=== PATIENT | female | born 1990 | race African-American/Black ===

== ENCOUNTER 2017-03-10 01:00 | Emergency (ER) | payer SELFPAY ==
[~2017-03-10] VITALS: Ht 160 cm; Wt 92.5 kg
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
[2017-03-10 02:03] LABS: BILIRUBIN,URINE NEGATIVE (NEG); GLUCOSE,URINE NEGATIVE (NEG); NITRITE,URINE NEGATIVE (NEG); PROTEIN,URINE NEGATIVE (NEG-TRACE); UROBILINOGEN,URINE 0.2 mg/dL (0.2 mg/dL)
[2017-03-10 02:14] LABS: BACTERIA,URINE MODERATE /HPF (0-FEW); RBC,URINE 0 /HPF (0-2); SQUAMOUS EPITHELIAL CELL,UR MOD /LPF
[2017-03-10 02:23] LABS: NEG OBC UR NEG; POS OBC UR POS
[2017-03-10] MEDS ORDERED: NAPR500T PO (03:58)
[2017-03-10] MEDS ORDERED: TIZA4CAP3 PO (03:58)
[2017-03-10 04:10] VITALS: BP 119/62
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
== END 2017-03-10 04:10 | disposition home or self-care (01) ==
LOC: ER 01:00
DX: S16.1XXA Strain of muscle, fascia and tendon at neck level, initial encounter (principal); S29.012A Strain of muscle and tendon of back wall of thorax, initial encounter; J45.909 Unspecified asthma, uncomplicated; V47.6XXA Car passenger injured in collision with fixed or stationary object in traffic accident, initial encounter; Y93.89 Activity, other specified; Y92.488 Other paved roadways as the place of occurrence of the external cause; Y99.8 Other external cause status
CPT/HCPCS: 72040; 72072; 81001; 81025; 87086; 99285

== ENCOUNTER 2018-03-18 20:40 | Emergency (ER) | payer OTHER ==
[~2018-03-18] VITALS: Ht 160 cm; Wt 92.5 kg
[~2018-03-18 20:40] MED LIST: NAPR-683 PO; TIZA4CAP3 PO
[2018-03-18 21:10] VITALS: BP 157/89
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
== END 2018-03-18 21:32 | disposition home or self-care (01) ==
LOC: ER 20:40
DX: S76.312A Strain of muscle, fascia and tendon of the posterior muscle group at thigh level, left thigh, initial encounter (principal); J45.909 Unspecified asthma, uncomplicated; Y04.0XXA Assault by unarmed brawl or fight, initial encounter; Y93.89 Activity, other specified; Y92.89 Other specified places as the place of occurrence of the external cause; Y99.8 Other external cause status
CPT/HCPCS: 99282; 99283

== ENCOUNTER 2018-05-08 08:10 | Emergency (ER) | payer OTHER ==
[~2018-05-08] VITALS: Ht 157.5 cm; Wt 82.6 kg
[2018-05-08] MEDS ORDERED: METOCLOPRAMIDE HCL 10 MG/2 ML VIAL. IV ONE (08:30)
--- NOTE | 2018-05-08 08:33 | PHYS DOC ---
Past Medical History Past Medical History: Asthma Past Surgical History: Cholecystectomy Additional Past Surgical Histo: IUD Alcohol Use: None Drug Use: None Adult General HPI HPI Patient is a 28 year old female who presents with abdominal pain, nausea, vomiting, and diarrhea for the past 3 days. This started on Thanksgiving. Patient has been seen at [facility] as well as [facility]. In fact just left [facility] at 5:00 this morning, was unable to get her prescriptions filled, started feeling badly again as the medication that she had received at [facility] wore off, and so took the ambulance to this emergency Department. Patient denies any blood in the stool or emesis. Patient cannot verbalize what kind of workup such as laboratory testing or imaging was performed. Medication given in the emergency department seem to help with the symptoms. Patient reports the pain is severe, crampy and achy, and across her entire abdomen.[] Review of Systems Review of Systems Constitutional: Denies fever or chills [] Eyes: Denies change in visual acuity, redness, or eye pain [] HENT: Denies nasal congestion or sore throat [] Respiratory: Denies cough or shortness of breath [] Cardiovascular: No chest pain or palpitations[] GI: See history of present illness[] : Denies dysuria or hematuria [] Musculoskeletal: Denies back pain or joint pain [] Integument: Denies rash or skin lesions [] Neurologic: Denies headache, focal weakness or sensory changes [] Endocrine: Denies polyuria or polydipsia [] All other systems were reviewed and found to be within normal limits, except as documented in this note. Current Medications Current Medications Current Medications Medications (Trade) Dose Ordered Sig/Naz Start Time Stop Time Status Last Admin Dose Admin Hyoscyamine (Anaspaz) 0.125 mg ONCE ONCE 05/08/18 09:00 05/08/18 09:01 DC 05/08/18 08:57 0.125 MG Ketorolac Tromethamine (Toradol 15mg Vial) 15 mg 1X ONCE 05/08/18 09:00 05/08/18 09:01 DC 05/08/18 08:58 15 MG Metoclopramide HCl (Reglan Vial) 10 mg 1X ONCE 05/08/18 08:30 05/08/18 08:31 DC 05/08/18 08:48 10 MG Ringer's Solution 500 ml @ 250 mls/hr 1X ONCE 05/08/18 09:30 05/08/18 11:29 DC 05/08/18 09:30 250 MLS/HR Allergies Allergies Allergies Coded Allergies Type Severity Reaction Last Updated Verified No Known Drug Allergies 06/28/13 No Physical Exam Physical Exam Constitutional: Well developed, well nourished, no acute distress, non-toxic appearance. [] HENT: Normocephalic, atraumatic, bilateral external ears normal, oropharynx moist, no oral exudates, nose normal. [] Eyes: PERRLA, EOMI, conjunctiva normal, no discharge. [] Neck: Normal range of motion, no tenderness, supple, no stridor. [] Cardiovascular:Heart rate regular rhythm, no murmur [] Lungs & Thorax: Bilateral breath sounds clear to auscultation [] Abdomen: Bowel sounds normal, soft, diffuse tenderness, able to sit up without any difficulty, no masses, no pulsatile masses. [] Skin: Warm, dry, no erythema, no rash. [] Back: No tenderness, no CVA tenderness. [] Extremities: No tenderness, no cyanosis, no clubbing, ROM intact, no edema. [] Neurologic: Alert and oriented X 3, normal motor function, normal sensory function, no focal deficits noted. [] Psychologic: Affect normal, judgement normal, mood normal. [] Current Patient Data Vital Signs Vital Signs Date Time Temp Pulse Resp B/P (MAP) Pulse Ox O2 Delivery O2 Flow Rate FiO2 05/08/18 10:30 60 20 Room Air 05/08/18 08:30 100 05/08/18 08:10 98.6 156/82 (106) 98.6 Lab Values Laboratory Tests Test 05/08/18 08:48 05/08/18 09:40 05/08/18 11:20 05/08/18 11:25 White Blood Count 15.4 x10^3/uL (4.0-11.0) H Red Blood Count 4.87 x10^6/uL (3.50-5.40) Hemoglobin 15.2 g/dL (12.0-15.5) Hematocrit 44.3 % (36.0-47.0) Mean Corpuscular Volume 91 fL (79-100) Mean Corpuscular Hemoglobin 31 pg (25-35) Mean Corpuscular Hemoglobin Concent 34 g/dL (31-37) Red Cell Distribution Width 13.5 % (11.5-14.5) Platelet Count 326 x10^3/uL (140-400) Neutrophils (%) (Auto) 78 % (31-73) H Lymphocytes (%) (Auto) 16 % (24-48) L Monocytes (%) (Auto) 6 % (0-9) Eosinophils (%) (Auto) 0 % (0-3) Basophils (%) (Auto) 1 % (0-3) Neutrophils # (Auto) 12.0 x10^3uL (1.8-7.7) H Lymphocytes # (Auto) 2.4 x10^3/uL (1.0-4.8) Monocytes # (Auto) 0.9 x10^3/uL (0.0-1.1) Eosinophils # (Auto) 0.0 x10^3/uL (0.0-0.7) Basophils # (Auto) 0.1 x10^3/uL (0.0-0.2) Sodium Level 140 mmol/L (136-145) Potassium Level 3.0 mmol/L (3.5-5.1) L Chloride Level 100 mmol/L (98-107) Carbon Dioxide Level 26 mmol/L (21-32) Anion Gap 14 (6-14) Blood Urea Nitrogen 15 mg/dL (7-20) Creatinine 0.9 mg/dL (0.6-1.0) Estimated GFR (Cockcroft-Gault) 89.6 BUN/Creatinine Ratio 17 (6-20) Glucose Level 85 mg/dL (70-99) Lactic Acid Level 2.6 mmol/L (0.4-2.0) H Calcium Level 9.4 mg/dL (8.5-10.1) Total Bilirubin 0.8 mg/dL (0.2-1.0) Aspartate Amino Transferase (AST) 18 U/L (15-37) Alanine Aminotransferase (ALT) 23 U/L (14-59) Alkaline Phosphatase 77 U/L (46-116) Total Protein 8.5 g/dL (6.4-8.2) H Albumin 3.5 g/dL (3.4-5.0) Albumin/Globulin Ratio 0.7 (1.0-1.7) L Lipase 92 U/L (73-393) Urine Collection Type Void Urine Color Yellow Urine Clarity Hazy Urine pH 7.0 Urine Specific [place] 1.025 Urine Protein 30 mg/dL (NEG-TRACE) Urine Glucose (UA) Negative mg/dL (NEG) Urine Ketones (Stick) >=80 mg/dL (NEG) Urine Blood Negative (NEG) Urine Nitrite Negative (NEG) Urine Bilirubin Small (NEG) Urine Urobilinogen Dipstick 1.0 mg/dL (0.2 mg/dL) Urine Leukocyte Esterase Negative (NEG) Urine RBC Occ /HPF (0-2) Urine WBC 5-10 /HPF (0-4) Urine Squamous Epithelial Cells Many /LPF Urine Bacteria Moderate /HPF (0-FEW) Urine Mucus Marked /LPF Urine Opiates Screen Neg (NEG) Urine Methadone Screen Neg (NEG) Urine Barbiturates Neg (NEG) Urine Phencyclidine Screen Neg (NEG) Urine Amphetamine/Methamphetamine Neg (NEG) Urine Benzodiazepines Screen Pos (NEG) Urine Cocaine Screen Neg (NEG) Urine Cannabinoids Screen Pos (NEG) Urine Ethyl Alcohol Neg (NEG) POC Urine HCG, Qualitative Hcg negative (Negative) Laboratory Tests 05/08/18 08:48 Laboratory Tests 05/08/18 09:40 EKG EKG [] Radiology/Procedures Radiology/Procedures [] Course & Med Decision Making Course & Med Decision Making Pertinent Labs and Imaging studies reviewed. (See chart for details) ED course: Patient arrived by EMS, was smiling while sitting on the MS Contin was able to transfer herself from the EMS cot and walk to the hospital bed. During evaluation, patient felt that she had to start pacing to help with the pain. Records were requested as well as received from [facility] as well as [facility] on the [place]. She was seen at each of these facilities in the past [address] scan obtained at [facility] on 05/07/2018@50 8 AM: There was a tiny small bowel deception involving the second portion of the duodenum that should resolve spontaneously. She did receive relief of her discomfort with the medication given in the emergency department. After the laboratory findings from us returned these were discussed with the patient and all questions were answered.[] Dragon Disclaimer Dragon Disclaimer This electronic medical record was generated, in whole or in part, using a voice recognition dictation system. Departure Departure Impression: Primary Impression: Abdominal pain Additional Impression: Urinary tract infection Disposition: 01 HOME, SELF-CARE Condition: GOOD Referrals: GERMAINE CARRERA (PCP) Follow-up in 2 days Patient Instructions: Abdominal Pain, Urinary Tract Infection Additional Instructions: Drink plenty of fluids. Take your medication as prescribed. Follow-up with your regular doctor in 2 days. Return to the ER if worsening pain, and able to tolerate liquids, or any other concerns. Scripts Meloxicam (MELOXICAM) 7.5 Mg Tablet 7.5 MG PO DAILY, #20 TAB Prov: FAWN FISHER DO 05/08/18 Dicyclomine Hcl (DICYCLOMINE HCL) 20 Mg Tablet 1 TAB PO TID, #30 TAB 1 Refill Prov: FAWN FISHER DO 05/08/18 Cephalexin (CEPHALEXIN) 500 Mg Tablet 1 TAB PO TID, #30 TAB Prov: FAWN FISHER DO 05/08/18 Problem Qualifiers Primary Impression: Abdominal pain Abdominal location: generalized Qualified Codes: R10.84 - Generalized abdominal pain Additional Impression: Urinary tract infection Urinary tract infection type: site unspecified Hematuria presence: without hematuria Qualified Codes: N39.0 - Urinary tract infection, site not specified FAWN FISHER DO May 08, 2018 08:33
[2018-05-08] MEDS ORDERED: KETOROLAC 15 MG/ML VIAL. IV ONE (09:00)
[2018-05-08] MEDS ORDERED: HYOSCYAMINE 0.125 MG TAB.RAPDIS PO ONE (09:00)
[2018-05-08 09:07] LABS: BASO # 0.1 x10^3/uL (0.0-0.2); BASO % 1 % (0-3); EOS % 0 % (0-3); HEMATOCRIT 44.3 % (36.0-47.0); HEMOGLOBIN 15.2 g/dL (12.0-15.5); LYMPH # 2.4 x10^3/uL (1.0-4.8); LYMPH % 16 % (24-48); MEAN CORPUSCULAR HEMOGLOBIN 31 pg (25-35); MEAN CORPUSCULAR HGB CONC 34 g/dL (31-37); MEAN CORPUSCULAR VOLUME 91 fL (79-100); MONO # 0.9 x10^3/uL (0.0-1.1); MONO % 6 % (0-9); NEUT % 78 % (31-73); PLATELET COUNT 326 x10^3/uL (140-400); RED BLOOD COUNT 4.87 x10^6/uL (3.50-5.40); RED CELL DISTRIBUTION WIDTH 13.5 % (11.5-14.5); WHITE BLOOD COUNT 15.4 x10^3/uL (4.0-11.0)
[2018-05-08] MEDS ORDERED: IV RINGERS,LACTATED 500ML 1,000 ML IV ONE (09:30)
[2018-05-08] MEDS ORDERED: IV RINGERS,LACTATED 500ML 1,000 ML IV SCH (09:30)
[2018-05-08] MEDS ORDERED: IV RINGERS,LACTATED 500ML 500 ML IV ONE (09:30)
[2018-05-08] MEDS ORDERED: IV RINGERS,LACTATED 1000ML 1,000 ML IV SCH (09:30)
[2018-05-08 10:21] LABS: ALBUMIN 3.5 g/dL (3.4-5.0); ALBUMIN/GLOBULIN RATIO 0.7 (1.0-1.7); CALCIUM 9.4 mg/dL (8.5-10.1); CREATININE 0.9 mg/dL (0.6-1.0); GFR 89.6; TOTAL BILIRUBIN 0.8 mg/dL (0.2-1.0); TOTAL PROTEIN 8.5 g/dL (6.4-8.2)
[2018-05-08 11:22] VITALS: BP 151/74
[2018-05-08 11:39] LABS: BILIRUBIN,URINE SMALL (NEG); COLOR,URINE YELLOW; NITRITE,URINE NEGATIVE (NEG); PROTEIN,URINE 30 mg/dL (NEG-TRACE)
[2018-05-08 11:45] LABS: AMPHETAMINE/METHAMPHETAMINE NEG (NEG); BARBITURATES NEG (NEG); BENZODIAZEPINES POS (NEG); CANNABINOIDS POS (NEG); COCAINE NEG (NEG); METHADONE NEG (NEG); OPIATES NEG (NEG); PHENCYCLIDINE NEG (NEG)
[2018-05-08 12:11] LABS: CLARITY,URINE HAZY
[2018-05-08 12:14] LABS: BACTERIA,URINE MODERATE /HPF (0-FEW); RBC,URINE OCC /HPF (0-2); SQUAMOUS EPITHELIAL CELL,UR MANY /LPF
[2018-05-08] MEDS ORDERED: MELO7.5T29 PO (12:38)
[2018-05-08] MEDS ORDERED: DICY20TA3 PO (12:38)
[2018-05-08] MEDS ORDERED: CEPH500T PO (12:38)
== END 2018-05-08 12:52 | disposition home or self-care (01) ==
LOC: ER 08:10
DX: N39.0 Urinary tract infection, site not specified (principal); J45.909 Unspecified asthma, uncomplicated
CPT/HCPCS: 36415; 80053; 80307; 81001; 81025; 83605; 83690; 85025; 87086; 96361; 96374; 96375; 99283; J1885; J2765; J7120

== ENCOUNTER 2020-12-09 14:12 | Emergency (ER) | payer OTHER ==
[~2020-12-09] VITALS: Ht 160 cm; Wt 91.0 kg
[~2020-12-09 14:12] MED LIST changes: +CEPH500T PO; +DICY20TA3 PO; +MELO7.5T29 PO
[2020-12-09 14:26] VITALS: BP 132/63
[2020-12-09] MEDS ORDERED: LIDOCAINE 1% Multi-Dose 20 ML VIAL. INJ ONE (15:15)
[2020-12-09] MEDS ORDERED: CEPH500C PO (15:16)
--- NOTE | 2020-12-09 15:16 | PHYS DOC ---
Past Medical History Past Medical History: Asthma Past Surgical History: Cholecystectomy Additional Past Surgical Histo: IUD Smoking Status: Never Smoker Alcohol Use: None Drug Use: None General Adult EDM: Chief Complaint: ABSCESS HPI: HPI: Patient is a 30 year old female who presents with for last few days she has had a abscess to the left pubic area. She denies fever, nausea, vomiting, diarrhea, abdominal pain. She is a month . She has a history of asthma, cholecystectomy and an IUD. Patient states her pain is a 7 out of 10 especially when the area is touched. Patient denies abdominal pain, nausea, vomiting, diarrhea, fever, vaginal bleeding, unusual vaginal discharge. She states she went through an OB 3 days ago and heard the baby's heartbeat. Review of Systems: Review of Systems: Constitutional: Denies fever or chills. [] Eyes: Denies change in visual acuity. [] HENT: Denies nasal congestion or sore throat. [] Respiratory: Denies cough or shortness of breath. [] Cardiovascular: Denies chest pain or edema. [] GI: Denies abdominal pain, nausea, vomiting, bloody stools or diarrhea. [] : Denies dysuria. [] Musculoskeletal: Denies back pain or joint pain. [] Integument: Denies rash. + Left pubic abscess [] Neurologic: Denies headache, focal weakness or sensory changes. [] Endocrine: Denies polyuria or polydipsia. [] Lymphatic: Denies swollen glands. [] Psychiatric: Denies depression or anxiety. [] Heart Score: C/O Chest Pain: No Risk Factors: Risk Factors: DM, Current or recent (<one month) smoker, HTN, HLP, family history of CAD, obesity. Risk Scores: Score 0 - 3: 2.5% MACE over next 6 weeks - Discharge Home Score 4 - 6: 20.3% MACE over next 6 weeks - Admit for Clinical Observation Score 7 - 10: 72.7% MACE over next 6 weeks - Early Invasive Strategies Current Medications: Current Medications Medications (Trade) Dose Ordered Sig/Naz Start Time Stop Time Status Last Admin Dose Admin Lidocaine HCl (Lidocaine 1% 20ml Vial) 20 ml 1X ONCE 12/09/20 15:15 12/09/20 15:16 Allergies: Allergies: Allergies Coded Allergies Type Severity Reaction Last Updated Verified No Known Drug Allergies 06/28/13 No Physical Exam: PE: Constitutional: Well developed, well nourished, no acute distress, non-toxic appearance. [] HENT: Normocephalic, atraumatic, bilateral external ears normal, oropharynx moist, no oral exudates, nose normal. [] Eyes: PERRLA, EOMI, conjunctiva normal, no discharge. [] Neck: Normal range of motion, no tenderness, supple, no stridor. [] Cardiovascular:Heart rate regular rhythm, no murmur [] Lungs & Thorax: Bilateral breath sounds clear to auscultation [] Abdomen: Bowel sounds normal, soft, no tenderness, no masses, no pulsatile masses. [] Skin: Warm, dry, no erythema, no rash. Abscess to left pubic area [] Back: No tenderness, no CVA tenderness. [] Extremities: No tenderness, no cyanosis, no clubbing, ROM intact, no edema. [] Neurologic: Alert and oriented X 3, normal motor function, normal sensory function, no focal deficits noted. [] Psychologic: Affect normal, judgement normal, mood normal. [] Current Patient Data: Vital Signs: Vital Signs Date Time Temp Pulse Resp B/P (MAP) Pulse Ox O2 Delivery O2 Flow Rate FiO2 12/09/20 14:26 98.8 88 16 132/63 (86) 100 Room Air 98.8 EKG: EKG: [] Radiology/Procedures: Radiology/Procedures: [] Course & Med Decision Making: Course & Med Decision Making Pertinent Labs and Imaging studies reviewed. (See chart for details) See HPI. Alert and oriented x4. Ambulatory with steady gait. Speaks in full clear sentences. No cellulitis. Abscess area is soft. There is currently no drainage. Afebrile. Patient appears to be very paranoid and is questioning before I use the lidocaine to numb up her skin if this is going to hurt her baby. She states that the baby's father is going into the [employer] and the grandmother is trying to sacrifice the baby. Patient states that the grandmother has a whole bunch of therefore chipping things in the house and family members have been dying off and now it will make sense that the grandmother has been sacrificing her family members. Patient states that her parents are going to send her over sea's and she does not know why. Patient is stating that she wants a US of her baby even though she does not have any complaints. Patient states she is not leaving until she gets a US. I spoke with Dr Senthil james patient and he states since she has no related complaints she can follow up OB. I&D Location: Left pubic area. Area is 1 cm vertically and 2 inches horizontally. Anesthesia: 1% lidocaine Scalpel size: #11 Skin: Normal Drainage: small purulent fluid Packing: None Patient tolerated the procedure well with no complications. The area was prepped and draped in usual sterile fashion. Area was cleaned with chloehexidine prior to procedure. Return for signs and symptoms of infection education given. Patient to return in 48 hours for wound recheck. [] Dragon Disclaimer: Dragon Disclaimer: This electronic medical record was generated, in whole or in part, using a voice recognition dictation system. Departure Departure Impression: Primary Impression: Abscess Disposition: HOME / SELF CARE / HOMELESS Condition: STABLE Referrals: GERMAINE CARRERA (PCP) Patient Instructions: Abscess, Abscess, Care After Additional Instructions: Follow-up with your OB doctor soon as possible. Watch for signs of worsening infection. Take antibiotic as prescribed and with food. You can always follow- up with us in the next 48 hours for a wound recheck. Scripts Cephalexin (CEPHALEXIN) 500 Mg Capsule 1 CAP PO QID, #40 CAP Prov: KEITH TRINH APRN 12/09/20 KEITH TRINH APRN Dec 09, 2020 15:16
== END 2020-12-09 16:08 | disposition home or self-care (01) ==
LOC: ER 14:12
DX: O99.711 Diseases of the skin and subcutaneous tissue complicating pregnancy, first trimester (principal); L02.214 Cutaneous abscess of groin; O99.511 Diseases of the respiratory system complicating pregnancy, first trimester; J45.909 Unspecified asthma, uncomplicated; Z3A.01 Less than 8 weeks gestation of pregnancy
CPT/HCPCS: 10060; 99283; J3490

== ENCOUNTER → 2020-12-16 | Emergency (ER) | payer OTHER ==
[2020-12-09 14:26] VITALS: BP 132/63
[~2020-12-16] MED LIST changes: +CEPH500C PO
== END | disposition left against medical advice (07) ==
LOC: ER 17:32
DX: M54.9 Dorsalgia, unspecified (principal); Z53.21 Procedure and treatment not carried out due to patient leaving prior to being seen by health care provider

== ENCOUNTER 2020-12-24 19:50 | Emergency (ER) | payer OTHER | END 2020-12-24 20:58 | disposition left against medical advice (07) | LOC: ER 19:50 | DX: R21 Rash and other nonspecific skin eruption (principal); L29.8 Other pruritus; Z53.21 Procedure and treatment not carried out due to patient leaving prior to being seen by health care provider ==

== ENCOUNTER 2020-12-25 19:53 | Emergency (ER) | payer OTHER ==
[~2020-12-25] VITALS: Ht 157.5 cm; Wt 85.9 kg
[2020-12-25 21:00] VITALS: BP 115/85
== END 2020-12-25 23:45 | disposition left against medical advice (07) ==
LOC: ER 19:53
DX: B02.9 Zoster without complications (principal); Z53.21 Procedure and treatment not carried out due to patient leaving prior to being seen by health care provider

== ENCOUNTER 2020-12-27 22:40 | Emergency (ER) | payer OTHER | END 2020-12-28 00:32 | disposition left against medical advice (07) | LOC: ER 22:40 | DX: K64.9 Unspecified hemorrhoids (principal); Z53.21 Procedure and treatment not carried out due to patient leaving prior to being seen by health care provider ==